=== PATIENT | male | born 1960 | race Caucasian/White ===

== ENCOUNTER 2022-05-02 12:34 | Emergency (ER) | payer OTHER ==
[2022-05-02 12:40] VITALS: BMI 34.5
[2022-05-02] MEDS ORDERED: PANTOPRAZOLE SODIUM 40 MG VIAL IVPUSH ONE (13:35)
[2022-05-02] MEDS ORDERED: ACETAMINOPHEN 1000 MG/100 ML BAG IVPB ONE (13:35)
[2022-05-02] MEDS ORDERED: SODIUM CHLORIDE 0.9% 500 ML INFUS.BAG IV ONE (13:35)
[2022-05-02] MEDS ORDERED: ACETAMINOPHEN INJECTION 100 ML IVPB ONE (14:23)
[2022-05-02] MEDS ORDERED: PANTOPRAZOLE SODIUM 40 MG VIAL ONE (14:24)
[2022-05-02 15:42] LABS: BASO % 0.3 % (0-2.0); EOS % 1.4 % (0-4.5); HEMATOCRIT 40.4 % (35.4-49); HEMOGLOBIN 13.7 GM/dL (11.7-16.9); LYMPH % 10.7 % (8-40); MCH 31.1 pg (25.7-33.7); MCHC 33.9 g/dl (32.0-35.9); MEAN CELL VOLUME 91.6 fl (80-96); MEAN PLT VOLUME 9.1 fl (7.5-11.1); MONO % 8.3 % (3.8-10.2); NEUT % 79.3 % (42.8-82.8); PLATELET COUNT 261 10^3/uL (134-434); RBC 4.41 M/mm3 (4.00-5.60); WHITE BLOOD COUNT 7.9 K/mm3 (4.0-10.0)
[2022-05-02 15:46] LABS: VENOUS BASE EXCESS -3.3 mmol/L (-2-2); VENOUS O2 SATURATION 73.7 % (70-80); VENOUS PH 7.324 (7.310-7.410)
[2022-05-02 15:48] LABS: EPI CELLS 6 /uL (0-25.1); HYALINE CASTS 0 /uL (0-3.1); PH,URINE 5.5 (5.0-8.0); URINE APPEARANCE CLEAR; URINE BACTERIA 74 /uL (0-1359); URINE BILIRUBIN NEGATIVE (NEGATIVE); URINE COLOR YELLOW; URINE GLUCOSE (UA) NEGATIVE (NEGATIVE); URINE KETONE NEGATIVE (NEGATIVE); URINE LEUK ESTERASE NEGATIVE (NEGATIVE); URINE NITRITE NEGATIVE (NEGATIVE); URINE PROTEIN 1+ (NEGATIVE); URINE RBC 7 /uL (0-23.9); URINE UROBILINOGEN 0.2 mg/dL (0.2-1.0); URINE WBC 7 /uL (0-25.8)
[2022-05-02 15:50] LABS: INR 1.26 (0.83-1.09); PROTHROMBIN TIME (PATIENT) 14.6 SEC (9.7-13.0)
[2022-05-02 15:52] LABS: ACTIVATED PTT 30.9 SECONDS (25.2-36.5)
[2022-05-02 16:09] LABS: CALCIUM 8.5 mg/dL (8.5-10.1)
[2022-05-02 16:10] LABS: ALBUMIN 3.9 g/dl (3.4-5.0); BLOOD UREA NITROGEN 11.2 mg/dL (7-18)
[2022-05-02 16:13] LABS: CREATININE 0.8 mg/dL (0.55-1.3)
[2022-05-02 16:14] LABS: BILIRUBIN,TOTAL 0.6 mg/dL (0.2-1); TOT PROT 7.6 g/dl (6.4-8.2)
[2022-05-02 16:37] VITALS: BP 136/76; PULSE 90; RESP 18; TEMP 98.1
== END 2022-05-02 18:19 | disposition home or self-care (01) ==
LOC: JER 12:34
PROC: 3E033GC Introduction of Other Therapeutic Substance into Peripheral Vein, Percutaneous Approach (ICD-10-PCS; principal; 2022-05-02)
DX: K52.9 Noninfective gastroenteritis and colitis, unspecified (principal)
CPT/HCPCS: 0241U-QW; 36415; 74177-TC; 76705-TC; 80053; 81003; 82803; 83605; 83690; 84484; 85025; 85610; 85730; 86850; 86900; 86901; 87040; 93005; 93010; 99285-25; Q9967

== ENCOUNTER 2023-06-09 17:37 | Emergency (ER) | payer OTHER ==
[2023-06-09 17:48] VITALS: BP 112/68; PULSE 62; RESP 18; TEMP 98.2; BMI 26.6
[2023-06-09] MEDS ORDERED: KETOROLAC TROMETHAMINE 30 MG/1 ML VIAL ONE (20:19)
[2023-06-09] MEDS: SODIUM CHLORIDE 0.9% 500 ML INFUS.BAG IV ONE (20:22)
[2023-06-09] MEDS: KETOROLAC TROMETHAMINE 30 MG/1 ML VIAL IVPUSH ONE (20:22)
[2023-06-09 20:25] LABS: EOS % 2.9 % (0-4.5); HEMOGLOBIN 13.5 GM/dL (11.7-16.9)
[2023-06-09 20:31] LABS: PH,URINE 5.5 (5.0-8.0); URINE APPEARANCE CLEAR; URINE BILIRUBIN NEGATIVE (NEGATIVE); URINE COLOR YELLOW; URINE GLUCOSE (UA) NEGATIVE (NEGATIVE); URINE KETONE NEGATIVE (NEGATIVE); URINE LEUK ESTERASE NEGATIVE (NEGATIVE); URINE NITRITE NEGATIVE (NEGATIVE); URINE PROTEIN NEGATIVE (NEGATIVE); URINE UROBILINOGEN 0.2 mg/dL (0.2-1.0)
[2023-06-09 20:33] LABS: BASO % 0.2 % (0-2.0); HEMATOCRIT 40.1 % (35.4-49); MCHC 33.7 g/dl (32.0-35.9); MEAN PLT VOLUME 8.8 fl (7.5-11.1); MONO % 6.5 % (3.8-10.2); NEUT % 64.4 % (42.8-82.8); PLATELET COUNT 276 10^3/uL (134-434); RBC 4.36 M/mm3 (4.00-5.60); RDW 13.5 % (11.9-15.9); WHITE BLOOD COUNT 7.6 K/mm3 (4.0-10.0)
[2023-06-09 20:53] LABS: POTASSIUM 4.3 mmol/L (3.5-5.1)
[2023-06-09 20:55] LABS: CALCIUM 9.4 mg/dL (8.5-10.1)
[2023-06-09 20:56] LABS: ALBUMIN 3.7 g/dl (3.4-5.0); BLOOD UREA NITROGEN 17.6 mg/dL (7-18)
[2023-06-09 20:59] LABS: CREATININE 0.9 mg/dL (0.55-1.3)
[2023-06-09 21:00] LABS: BILIRUBIN,TOTAL 0.3 mg/dL (0.2-1); TOT PROT 7.4 g/dl (6.4-8.2)
[2023-06-09] MEDS: ACETAMINOPHEN 500 MG TABLET (FP) PO ONE (23:10)
[2023-06-09] MEDS ORDERED: ACETAMINOPHEN 500 MG TABLET (FP) ONE (23:11)
== END 2023-06-09 23:45 | disposition home or self-care (01) ==
LOC: JER 17:37
PROC: 3E0303Z Introduction of Anti-inflammatory into Peripheral Vein, Open Approach (ICD-10-PCS; principal; 2023-06-09)
DX: R10.814 Left lower quadrant abdominal tenderness (principal); R35.0 Frequency of micturition; K65.9 Peritonitis, unspecified
CPT/HCPCS: 36415; 74177-TC; 80053; 81003; 85025; 87086; 99285-25; Q9967

== ENCOUNTER 2024-03-20 13:51 | Emergency (ER) | payer OTHER ==
[2024-03-20 14:00] VITALS: BP 128/82; PULSE 89; RESP 18; TEMP 99.2; BMI 27.7
[2024-03-20] MEDS ORDERED: IBUPROFEN 600 MG TABLET (FP) PO ONE (14:35)
[2024-03-20] MEDS: IBUPROFEN 600 MG TABLET (FP) PO ONE (14:37)
[2024-03-20] MEDS ORDERED: OSELTAMIVIR PHOSPHATE 75 MG CAPSULE ONE (15:19)
[2024-03-20] MEDS: OSELTAMIVIR PHOSPHATE 75 MG CAPSULE PO ONE (15:21)
== END 2024-03-20 15:30 | disposition home or self-care (01) ==
LOC: JERFT 13:51
DX: J10.1 Influenza due to other identified influenza virus with other respiratory manifestations (principal); R05.9 Cough, unspecified; R09.81 Nasal congestion; Z20.822 Contact with and (suspected) exposure to COVID-19
CPT/HCPCS: 0241U-QW; 71046-TC-FY; 99284-25